=== PATIENT | female | born 1985 | race Caucasian/White ===

== ENCOUNTER 2018-12-01 12:50 | Inpatient (IN) | payer MEDICAID ==
[2018-12-01] MEDS: LACTATED RINGER'S 1,000 ML IV ×2 (13:38→16:31)
[2018-12-01] MEDS ORDERED: TERBUTALINE 1 ML (13:49)
[2018-12-01] MEDS: TERBUTALINE 1 MG/ML INJ SC (14:00)
[2018-12-01 14:02] LABS: ADD MAN DIFF? NO
[2018-12-01 14:05] LABS: BASOPHILS % 0.3 % (0.0-2.0); EOSINOPHILS % 0.5 % (0.0-7.0); HEMOGLOBIN 12.9 g/dl (12.0-16.0); LYMPHOCYTES # 1.3 10^3/ul (0.8-2.9); LYMPHOCYTES % 16.6 % (15.0-51.0); MEAN CORPUSCULAR HEMOGLOBIN 31.9 pg (29.0-33.0); MEAN CORPUSCULAR HGB CONC 34.9 g/dl (32.0-37.0); MEAN CORPUSCULAR VOLUME 91.4 fl (82.0-101.0); MONOCYTE # 0.5 10^3/ul (0.3-0.9); MONOCYTES % 6.1 % (0.0-11.0); NEUTROPHIL # 6.1 10^3/ul (1.6-7.5); NEUTROPHILS % 75.9 % (39.0-77.0); PLATELET COUNT 148 10^3/UL (140-415); RED BLOOD COUNT 4.05 10^6/ul (4.20-5.40); RED CELL DISTRIBUTION WIDTH 13.3 % (11.5-14.5)
[2018-12-01 14:09] LABS: ADD UMIC NO; UR ASCORBIC ACID NEGATIVE (NEGATIVE); UR BILIRUBIN (Dip) NEGATIVE (NEGATIVE); UR BLOOD (Dip) NEGATIVE (NEGATIVE); UR CLARITY CLEAR (CLEAR); UR COLOR YELLOW (YELLOW); UR GLUCOSE (Dip) NEGATIVE (NEGATIVE); UR KETONES (Dip) NEGATIVE (NEGATIVE); UR LEUKOCYTE ESTERASE (Dip) NEGATIVE Leu/ul (NEGATIVE); UR NITRITE (Dip) NEGATIVE (NEGATIVE); UR SPECIFIC GRAVITY (Dip) 1.013 (1.003-1.030); UR TOTAL PROTEIN (Dip) NEGATIVE (NEGATIVE); UR UROBILINOGEN (Dip) NEGATIVE (NEGATIVE)
[2018-12-01 14:25] LABS: ALANINE AMINOTRANSFERASE 14 IU/L (13-69); ALBUMIN 3.1 g/dl (3.3-4.9); ALBUMIN/GLOBULIN RATIO 0.91; ALKALINE PHOSPHATASE 124 IU/L (42-121); ANION GAP 7 (5-13); ASPARTATE AMINO TRANSFERASE 21 IU/L (15-46); BILIRUBIN,INDIRECT 0.2 mg/dl (0-1.1); BILIRUBIN,TOTAL 0.2 mg/dl (0.2-1.3); BLOOD UREA NITROGEN 11 mg/dl (7-20); CALCIUM 8.7 mg/dl (8.4-10.2); CARBON DIOXIDE 25 mmol/L (21-31); CHLORIDE 105 mmol/L (97-110); CREATININE 0.37 mg/dl (0.44-1.00); Estimated GFR > 60 mL/min (>60); GLUCOSE 84 mg/dl (70-220); POTASSIUM 3.8 mmol/L (3.5-5.1); SODIUM 137 mmol/L (135-144); TOTAL PROTEIN 6.5 g/dl (6.1-8.1)
[2018-12-01] MEDS ORDERED: MISOPROSTOL 200 MCG TAB PR (15:00)
[2018-12-01] MEDS ORDERED: METHYLERGONOVINE 0.2 MG INJ IM (15:00)
[2018-12-01] MEDS ORDERED: BUTORPHANOL 2 MG INJ IV (15:00)
[2018-12-01] MEDS ORDERED: CARBOPROST 250 MCG INJ IM (15:00)
[2018-12-01] MEDS ORDERED: OXYTOCIN 30 UNITS/LR 500 ML IV ×2 (15:00)
[2018-12-01 15:06] LABS: RAPID PLASMA REAGIN NONREACTIVE (NR)
[2018-12-01 15:20] LABS: INR 0.86; PROTIME 11.8 Sec (11.9-14.9); PT RATIO 0.9
[2018-12-01 15:21] LABS: PARTIAL THROMBOPLASTIN TIME 26.9 Sec (23.0-35.0)
[2018-12-01 16:02] LABS: RUPTURE FETAL MEMBRANES POSITIVE (NEGATIVE)
[2018-12-01 16:43] LABS: HEPATITIS B SURFACE ANTIGEN NEGATIVE (NEGATIVE)
[2018-12-01] MEDS: AMPICILLIN 2 GM/NS (PMX) 100 ML IV (17:55)
[2018-12-01] MEDS: AMPICILLIN 1 GM/NS (PMX) 50 ML IV (22:01)
[2018-12-02] MEDS: LACTATED RINGER'S 1,000 ML IV ×2 (01:51→08:41)
[2018-12-02] MEDS: AMPICILLIN 1 GM/NS (PMX) 50 ML IV ×2 (02:21→06:27)
[2018-12-02] MEDS: OXYTOCIN 30 UNITS/LR 500 ML IV ×3 (03:25→13:32)
[2018-12-02] MEDS: LIDOCAINE 1% (MPF) 30 ML INJ INJ (09:26)
[2018-12-02] MEDS ORDERED: NACL 0.9% 3 ML SYG IV (09:30)
[2018-12-02] MEDS ORDERED: METHYLERGONOVINE 0.2 MG INJ IM (09:30)
[2018-12-02] MEDS: IBUPROFEN 600 MG TAB PO ×3 (09:30→17:38)
[2018-12-02] MEDS ORDERED: DIPHENHYDRAMINE 25 MG CAP PO (09:30)
[2018-12-02] MEDS ORDERED: OXYTOCIN 30 UNITS/LR 500 ML IV (09:30)
[2018-12-02] MEDS ORDERED: ONDANSETRON 4 MG INJ IV (09:30)
[2018-12-02] MEDS ORDERED: CARBOPROST 250 MCG INJ IM (09:30)
[2018-12-02] MEDS ORDERED: MISOPROSTOL 200 MCG TAB PR (09:30)
[2018-12-02] MEDS: OXYCODONE/ASPIRIN (4.88/325) TAB PO ×2 (11:08→20:04)
[2018-12-02] MEDS: BENZOCAINE 20% 56 ML SPRAY TOP (13:32)
[2018-12-02] MEDS: LANOLIN HPA 1 PKT TOP (13:33)
[2018-12-02] MEDS: WITCH HAZEL/GLYCERIN PAD PR (13:33)
[2018-12-02] MEDS: SENNA/DOCUSATE NA (8.6MG/50MG) TAB PO (20:04)
[2018-12-03] MEDS: IBUPROFEN 600 MG TAB PO ×5 (01:04→23:32)
[2018-12-03 06:58] LABS: HEMATOCRIT 33.6 % (37.0-47.0); HEMOGLOBIN 11.7 g/dl (12.0-16.0)
[2018-12-03] MEDS: SENNA/DOCUSATE NA (8.6MG/50MG) TAB PO ×2 (09:24→21:04)
[2018-12-03] MEDS: LANOLIN HPA 1 PKT TOP (12:17)
[2018-12-04] MEDS: IBUPROFEN 600 MG TAB PO ×2 (05:43→11:15)
[2018-12-04] MEDS: SENNA/DOCUSATE NA (8.6MG/50MG) TAB PO (08:56)
== END 2018-12-04 14:51 | disposition home or self-care (01) | DRG 807 ==
LOC: OBT 12:50 → L-D 12:50 → PP1 12-02 11:56 → L-D 12:51 → OBT 14:10 → L-D 14:10
PROC: 10E0XZZ Delivery of Products of Conception, External Approach (ICD-10-PCS; principal; 2018-12-02)
PROC: 0KQM0ZZ Repair Perineum Muscle, Open Approach (ICD-10-PCS; 2018-12-02)
DX: O62.3 Precipitate labor (principal); O70.1 Second degree perineal laceration during delivery; Z37.0 Single live birth; Z3A.37 37 weeks gestation of pregnancy
CPT/HCPCS: 76815; 76818; 80053; 81003; 84112; 85014; 85018; 85025; 85610; 85730; 86592; 86850; 86900; 86901; 87086; 87340; 96360